=== PATIENT | male | born 1985 | race Caucasian/White ===

== ENCOUNTER 2021-06-17 06:42 | Outpatient (CLI) | payer OTHER, SELFPAY ==
--- NOTE | ~2021-06-17 | MR_ITS ---
EXAMINATION: MR knee RT wo con DATE: 06/17/2021 07:46 INDICATION: Posterior right knee pain following injury 10 months prior TECHNIQUE: Magnetic resonance imaging (MRI) of the right knee was performed without intravenous contr ast. Sequences included coronal PD-weighted FSE, coronal PD-weighted FS FSE, sagittal T2-weighted FS E, sagittal PD-weighted FS FSE and axial PD weighted fat saturated FSE. COMPARISON: None. FINDINGS: Medial compartment: Medial meniscus is normal. Articular cartilage is normal. Lateral compartment: Lateral meniscus is normal. Articular cartilage is normal. Patellofemoral compartment: Articular cartilage is normal. Ligaments and tendons: The posterior cruciate ligament is normal. The anteromedial bundle of the anterior cruciate ligament is normal. Prominent increased intrasubstance signal throughout the posterolateral bundle of the ante rior cruciate ligament with couple small intrasubstance ganglion cysts near its cephalad femoral inse rtion where there appeared to be a few lax appearing fibers. Appearance suggests at least partial tea r involving the posterolateral bundle although differential would include mucoid degeneration isolate d to the posterolateral bundle. The medial collateral ligament and fibular collateral ligament comple x are normal. The extensor mechanism is normal. The visualized medial and lateral hamstring tendons a s well as the iliotibial band are normal. Fluid: Physiologic amount of fluid in the joint space. No loose osteochondral bodies identified. Osseous/other: Normal marrow signal. No fracture or pathologic marrow replacing process. IMPRESSION: 1. Likely at least partial tear of the posterolateral bundle of the anterior cruciate ligament with n ormal anteromedial bundle. Differential would include less likely mucoid degeneration isolated to the posterolateral bundle. Reviewed, dictated and finalized at location A. IMPRESSION: 1. Likely at least partial tear of the posterolateral bundle of the anterior cr uciate ligament with normal anteromedial bundle. Differential would include les s likely mucoid degeneration isolated to the posterolateral bundle.
== END 2021-06-17 06:43 | disposition home or self-care (01) ==
LOC: ANHIMG 06:48
PROVIDERS: Visit Provider Family Medicine
DX: M25.561 Pain in right knee (principal); G89.29 Other chronic pain; S83.511A Sprain of anterior cruciate ligament of right knee, initial encounter
CPT/HCPCS: 73721